=== PATIENT | male | born 1980 ===

== ENCOUNTER 2017-06-24 15:52 | Inpatient (IN) | payer OTHER ==
--- NOTE | 2017-06-24 16:42 | C.PDOC ---
History Of Present Illness <Mi Cervantes - Last Filed: 06/24/17 18:47> <Urban Koenig - Last Filed: 06/24/17 20:51> 37 yo male w/o significant PMHx come in for evaluation of intermittent epigastric pain pain for past 2 hours associate dwith burping. Pt reports, " after burp pain improves". Pain is intermittent, aching, localized over epigastric area, nonradiating. Otherwise, pt denies fever, chills, recent illness, CP, SOB, dyspnea, dipahoresis, palpitation, cough, wheezing, V/D, UTI sx, back pain. Pt denies previous hx of GI ds. Ambulate to ED for evaluation, not in any apparent distress. (Mi Cervantes) History Per: Patient History/Exam Limitations: no limitations Onset/Duration Of Symptoms: Hrs Current Symptoms Are (Timing): Still Present Location Of Pain/Discomfort: Epigastric <Mi Cervantes - Last Filed: 06/24/17 18:47> <Urban Koenig - Last Filed: 06/24/17 20:51> Time Seen by Provider: 06/24/17 16:14 Chief Complaint (Nursing): Abdominal Pain Past Medical History Reviewed: Historical Data, Nursing Documentation, Vital Signs - Medical History PMH: No Chronic Diseases Surgical History: No Surg Hx Family History: States: No Known Family Hx - Social History Hx Alcohol Use: Yes Hx Substance Use: No - Immunization History Hx Tetanus Toxoid Vaccination: No Hx Influenza Vaccination: No Hx Pneumococcal Vaccination: No <Mi Cervantes - Last Filed: 06/24/17 18:47> Vital Signs: Last Vital Signs Temp 97.6 F 06/24/17 17:17 Pulse 69 06/24/17 17:17 Resp 18 06/24/17 17:17 BP 164/111 H 06/24/17 19:55 Pulse Ox 100 06/24/17 18:48 Review Of Systems Except As Marked, All Systems Reviewed And Found Negative. Constitutional: Negative for: Fever, Chills Cardiovascular: Negative for: Chest Pain Respiratory: Negative for: Cough, Shortness of Breath, Wheezing Gastrointestinal: Positive for: Abdominal Pain. Negative for: Nausea, Vomiting Skin: Negative for: Rash <Mi Cervantes - Last Filed: 06/24/17 18:47> Physical Exam - Physical Exam Appears: Well, Non-toxic, No Acute Distress Skin: Normal Color, Warm, Dry, No Rash Head: Normacephalic Eye(s): bilateral: PERRL Nose: No Flaring, No Discharge Oral Mucosa: Moist, No Drooling Throat: No Drooling Neck: Trachea Midline, Supple Cardiovascular: Rhythm Regular, No Murmur, No JVD Respiratory: No Decreased Breath Sounds, No Accessory Muscle Use, No Stridor, No Wheezing Gastrointestinal/Abdominal: Soft, Tenderness (mild epigastric), No Distention, No Guarding, No Rebound Back: No CVA Tenderness Extremity: No Deformity, No Swelling Neurological/Psych: Oriented x3, Normal Speech <Mi Cervantes - Last Filed: 06/24/17 18:47> ED Course And Treatment ECG: Interpreted By Me, Viewed By Me ECG Rhythm: Sinus Rhythm ECG Interpretation: No Acute Changes Interpretation Of ECG: SR@69/min, NAD, no acute T wave or ST-T changes. O2 Sat by Pulse Oximetry: 100 (ra) Pulse Ox Interpretation: Normal - Radiology CXR: Read By Radiologist CXR Interpretation: Yes: No Acute Disease - Other Rad Abd, 2 views X-Ray: Viewed By Me, Read By Radiologist Interpretation: (-) air-fluid level, (+) constipation, moderate Progress Note: On re-evalution, pt reports ' still have pain". repeat BP remained high. Case discussed with and blood work recommend now. PulsEOx 100% RA. Neck: Supple, (-) JVD, (-) carotid bruits B/L. ENT: No acute findings. Lungs: CTA B/L, BS equal B/L. CVS: (+)S1S2, reg. Abd: mild epigastric, periumbilical tenderness, (-) garding, (-) rebound. Neurologicaly intact. EKG, CXR review and appears normal. Case discussed with sign out to <Mi Cervantes - Last Filed: 06/24/17 18:47> - Laboratory Results Result Diagrams: 06/24/17 18:36 06/24/17 18:36 ECG: Interpreted By Me, Viewed By Me ECG Rhythm: Sinus Rhythm ECG Interpretation: Normal, No Acute Changes <Urban Koenig - Last Filed: 06/24/17 20:51> Disposition Counseled Patient/Family Regarding: Diagnosis, Need For Followup, Rx Given - Disposition Disposition Time: 18:47 <Mi Cervantes - Last Filed: 06/24/17 18:47> <Urban Koenig - Last Filed: 06/24/17 20:51> - Disposition Referrals: [facility] [Outside] Disposition: HOME/ ROUTINE Condition: STABLE - Clinical Impression Clinical Impression: Epigastric abdominal pain, Hypertension - PA / FIELD INSTRUCTOR / Resident Statement MD/DO has reviewed & agrees with the documentation as recorded. - Scribe Statement The provider has reviewed the documentation as recorded by the Scribe <Mi Cervantes - Last Filed: 06/24/17 18:47> <Urban Koenig - Last Filed: 06/24/17 20:51> - Scribe Statement Dharmesh Gardiner All medical record entries made by the Scribe were at my direction and personally dictated by me. I have reviewed the chart and agree that the record accurately reflects my personal performance of the history, physical exam, medical decision making, and the department course for this patient. I have also personally directed, reviewed, and agree with the discharge instructions and disposition. (Mi Cervantes) Physician Patient Turnover Patient Signed Over To: Urban Koenig Handoff Comments: Blood work, re-eval, dispo <Mi Cervantes - Last Filed: 06/24/17 18:47>
--- NOTE | 2017-06-24 17:28 | RAD ---
HISTORY: Cough COMPARISON: None available. TECHNIQUE: Chest PA and lateral FINDINGS: LUNGS: No focal consolidation. Please note that chest x-ray has limited sensitivity for the detection of pulmonary masses. PLEURA: No significant pleural effusion identified. No definite pneumothorax . CARDIOVASCULAR: The cardiomediastinal silhouette appears within normal limits of size. OSSEOUS STRUCTURES: No acute osseous abnormality identified. VISUALIZED UPPER ABDOMEN: Elevation of the right hemidiaphragm. OTHER FINDINGS: None. IMPRESSION: No focal consolidation identified.
--- NOTE | 2017-06-24 17:29 | RAD ---
HISTORY: pain COMPARISON: None available. FINDINGS: BOWEL: Nonobstructive bowel gas pattern. Moderate constipation. No definite free air. BONES: No acute osseous abnormality is detected. OTHER FINDINGS: Mild elevation of the right hemidiaphragm. IMPRESSION: Moderate constipation.
[2017-06-24] MEDS ORDERED: Pantoprazole 40 mg EC Tab PO STA (17:51)
[2017-06-24] MEDS ORDERED: Alum-Mag Hydrox-Simethicone Susp (30 mL) PO STA (17:52)
[2017-06-24] MEDS ORDERED: Sodium Chloride 0.9% 1,000 ML IV ONE (18:00)
[2017-06-24] MEDS ORDERED: Simethicone 80 mg Chewtab PO STA (18:00)
[2017-06-24] MEDS ORDERED: Aluminum Hydroxide/Magnesium Hydroxide Susp (30 mL) ONE (18:05)
[2017-06-24] MEDS ORDERED: Pantoprazole 40 mg EC Tab PO ONE (18:14)
[2017-06-24 18:51] LABS: SQUAMOUS EPITHIAL < 1 /hpf (0-5); URINE BILIRUBIN NEGATIVE (NEGATIVE); URINE BLOOD 2+ (NEGATIVE); URINE CLARITY Clear (Clear); URINE COLOR Yellow (YELLOW); URINE GLUCOSE (UA) 3+ mg/dL (Normal); URINE LEUKOCYTE ESTERASE NEG Leu/uL (Negative); URINE PROTEIN 1+ mg/dL (NEGATIVE); URINE UROBILINOGEN NORMAL mg/dL (0.2-1.0)
[2017-06-24 18:55] LABS: BASO % 0.3 % (0.0-2.0); EOS % 0.5 % (0.0-4.0); HEMOGLOBIN 15.4 g/dL (12.0-18.0); LYMPH # 1.1 K/uL (1.0-4.3); LYMPH % 11.5 % (20.0-40.0); MEAN CELL VOLUME 86.4 fL (80.0-94.0); MEAN CORPUSCULAR HEMOGLOBIN 30.9 pg (27.0-31.0); MEAN CORPUSCULAR HGB CONC 35.8 g/dL (33.0-37.0); MEAN PLATELET VOLUME 8.5 fL (7.2-11.7); MONO # 0.6 K/uL (0.0-0.8); MONO % 6.1 % (0.0-10.0); NEUT # 7.7 K/uL (1.8-7.0); NEUT % 81.6 % (50.0-75.0); NRBC % 0.2 % (0.0-2.0); RED CELL DISTRIBUTION WIDTH 12.5 % (11.5-14.5); WHITE BLOOD COUNT 9.5 K/uL (4.8-10.8)
[2017-06-24 18:57] LABS: CALCIUM 9.3 mg/dl (8.6-10.4); GFR AFRICAN-AMERICAN > 60; GFR NON-AFRICAN AMERICAN > 60; LIPASE 1838 U/L (23-300)
[2017-06-24 19:00] LABS: ALB/GLOB RATIO 1.1 (1.0-2.1); ALBUMIN 4.3 g/dL (3.5-5.0); ALT/SGPT 79 U/L (21-72); AST/SGOT 95 U/L (17-59); BLOOD UREA NITROGEN 10 mg/dL (9-20)
[2017-06-24] MEDS ORDERED: Iohexol 240 (50 ml) PO ONE (19:38)
[2017-06-24] MEDS ORDERED: Iohexol 240 (50 ml) ONE (19:53)
[2017-06-24] MEDS ORDERED: Iohexol 350mg/ml 100 ML ONE (19:59)
--- NOTE | 2017-06-24 23:13 | CP.PCM.HP ---
Present on Admission - Present on Admission Any Indicators Present on Admission: No Past Patient History - Past Social History Smoking Status: Never Smoked - PSYCHIATRIC Hx Substance Use: No - SURGICAL HISTORY Hx Surgeries: No - ANESTHESIA Hx Anesthesia: No Meds Allergies/Adverse Reactions: Allergies Allergy/AdvReac Type Severity Reaction Status Date / Time No Known Allergies Allergy Verified 06/24/17 15:59 Results - Vital Signs Recent Vital Signs: Last Vital Signs Temp 98.7 F 06/24/17 21:31 Pulse 98 H 06/24/17 21:31 Resp 20 06/24/17 21:31 BP 171/92 H 06/24/17 21:31 Pulse Ox 100 06/24/17 18:48 - Labs Result Diagrams: 06/24/17 18:36 06/24/17 18:36 Labs: Laboratory Results - last 24 hr 06/24/17 06/24/17 06/24/17 18:36 18:36 18:36 WBC 9.5 RBC 5.00 Hgb 15.4 Hct 43.2 MCV 86.4 MCH 30.9 MCHC 35.8 RDW 12.5 Plt Count 193 MPV 8.5 Neut % (Auto) 81.6 H Lymph % (Auto) 11.5 L [place] % (Auto) 6.1 Eos % (Auto) 0.5 Baso % (Auto) 0.3 Neut # (Auto) 7.7 H Lymph # (Auto) 1.1 [place] # (Auto) 0.6 Eos # (Auto) 0.0 Baso # (Auto) 0.0 PT 11.0 INR 1.0 APTT 29 Sodium Potassium Chloride Carbon Dioxide Anion Gap BUN Creatinine Est GFR ( Amer) Est GFR (Non-Af Amer) Random Glucose Calcium Total Bilirubin AST ALT Alkaline Phosphatase Troponin I Total Protein Albumin Globulin Albumin/Globulin Ratio Lipase Urine Color Yellow Urine Clarity Clear Urine pH 7.0 Ur Specific [place] 1.031 H Urine Protein 1+ H Urine Glucose (UA) 3+ H Urine Ketones 2+ H Urine Blood 2+ H Urine Nitrate Negative Urine Bilirubin Negative Urine Urobilinogen Normal Ur Leukocyte Esterase Neg Urine WBC (Auto) 2 Urine RBC (Auto) 25 H Ur Squamous Epith Cells < 1 06/24/17 18:36 WBC RBC Hgb Hct MCV MCH MCHC RDW Plt Count MPV Neut % (Auto) Lymph % (Auto) [place] % (Auto) Eos % (Auto) Baso % (Auto) Neut # (Auto) Lymph # (Auto) [place] # (Auto) Eos # (Auto) Baso # (Auto) PT INR APTT Sodium 130 L Potassium 4.8 Chloride 92 L Carbon Dioxide 22 Anion Gap 21 H BUN 10 Creatinine 0.4 L Est GFR ( Amer) > 60 Est GFR (Non-Af Amer) > 60 Random Glucose 286 H Calcium 9.3 Total Bilirubin 1.3 AST 95 H ALT 79 H Alkaline Phosphatase 76 Troponin I 0.0210 Total Protein 8.1 Albumin 4.3 Globulin 3.8 Albumin/Globulin Ratio 1.1 Lipase 1838 H Urine Color Urine Clarity Urine pH Ur Specific [place] Urine Protein Urine Glucose (UA) Urine Ketones Urine Blood Urine Nitrate Urine Bilirubin Urine Urobilinogen Ur Leukocyte Esterase Urine WBC (Auto) Urine RBC (Auto) Ur Squamous Epith Cells Assessment & Plan (1) Acute pancreatitis Status: Acute (2) Epigastric abdominal pain Status: Acute (3) Hypertension Status: Acute - Assessment and Plan (Free Text) Plan: ivf protonix ovenox gi consult amylase lipase banana bag cbcmcp tomorrow am
[2017-06-24] MEDS ORDERED: Multivitamin (MVI) 10 ML, Thiamine 100 MG, Folic Acid 1 MG in Sodium Chloride 0.9% 1,00... IV ONE (23:19)
[2017-06-25 06:56] LABS: BASO % 0.4 % (0.0-2.0); EOS % 0.4 % (0.0-4.0); LYMPH # 1.1 K/uL (1.0-4.3); LYMPH % 11.8 % (20.0-40.0); MEAN CELL VOLUME 86.8 fL (80.0-94.0); MEAN CORPUSCULAR HEMOGLOBIN 31.5 pg (27.0-31.0); MEAN CORPUSCULAR HGB CONC 36.3 g/dL (33.0-37.0); MONO # 0.6 K/uL (0.0-0.8); MONO % 6.9 % (0.0-10.0); NEUT # 7.2 K/uL (1.8-7.0); NEUT % 80.5 % (50.0-75.0); RBC 4.76 Mil/uL (4.40-5.90); RED CELL DISTRIBUTION WIDTH 12.5 % (11.5-14.5); WHITE BLOOD COUNT 8.9 K/uL (4.8-10.8)
[2017-06-25 07:18] LABS: ALB/GLOB RATIO 1.2 (1.0-2.1); ALBUMIN 3.8 g/dL (3.5-5.0); ALT/SGPT 59 U/L (21-72); AMYLASE 360 U/L (30-110); AST/SGOT 47 U/L (17-59); BLOOD UREA NITROGEN 7 mg/dL (9-20); CALCIUM 8.6 mg/dl (8.6-10.4); GFR AFRICAN-AMERICAN > 60; GFR NON-AFRICAN AMERICAN > 60
--- NOTE | 2017-06-25 09:10 | CT ---
PROCEDURE: CT Abdomen and Pelvis with contrast HISTORY: epigastric pain/ elevated lipase COMPARISON: None. TECHNIQUE: CT scan of the abdomen and pelvis was performed after intravenous administration of contrast. Oral contrast was administered. Coronal and sagittal reformatted images were obtained. Contrast dose: 100 mL Omnipaque 350 Radiation dose: Total exam DLP = 511.72 mGy-cm. This CT exam was performed using one or more of the following dose reduction techniques: Automated exposure control, adjustment of the mA and/or kV according to patient size, and/or use of iterative reconstruction technique. FINDINGS: LOWER THORAX: There are nodular densities in the right lower lobes, the largest measures 9 mm. The left lung base is clear. LIVER: There is mild hepatomegaly and diffuse fatty infiltration in the liver. No gross lesion or ductal dilatation. GALLBLADDER AND BILE DUCTS: No calcified gallstones. PANCREAS: There is focal enlargement and edema in the head of the pancreas with significant surrounding inflammatory changes and fluid in the right superior retroperitoneum extending to right para renal space and right pericolic gutter. No evidence for ductal dilatation, calcifications or pseudocyst. The body and tail of the pancreas are relatively normal in appearance. SPLEEN: Normal in size and appearance. ADRENALS: No discrete nodule. KIDNEYS AND URETERS: Both kidneys are normal in size and there is homogeneous enhancement without hydronephrosis or mass. VASCULATURE: No aortic aneurysm. BOWEL: The small bowel loops are normal in appearance. The colon is decompressed. No bowel dilatation or obstruction. APPENDIX: Normal appendix. PERITONEUM: No free air. LYMPH NODES: No enlarged lymph nodes. BLADDER: Grossly normal in appearance. REPRODUCTIVE: The prostate gland is normal in size. BONES: No acute fracture. Within normal limits for the patient's age. OTHER FINDINGS: None. IMPRESSION: 1. Focal acute pancreatitis predominantly involving the head of the pancreas with surrounding inflammatory changes and small amount of free fluid in the superior retroperitoneum, right para renal space and right pericolic gutter. No evidence for ductal dilatation or pseudocyst. 2. Mild hepatomegaly and fatty liver. 3. 9 mm nodule in the right posterior lower lobe. A dedicated CT scan of the thorax without intravenous contrast on a non emergent basis is recommended for complete evaluation of the lungs. A preliminary report was provided by [facility].
[2017-06-25] MEDS: Enoxaparin 40 mg Syringe SC SCH (09:11)
--- NOTE | 2017-06-25 09:11 | CP.PCM.CON ---
<Kenn Garcia - Last Filed: 06/25/17 09:29> History of Present Illness - History of Present Illness History of Present Illness: Initial GI Consult Note - Kota Garcia PGY2 cc: abdominal pain HPI: Patient is a 37yo male with no past medical history that presented c/o abdominal pain that started yesterday afternoon. He reported that his abdominal pain localized to the epigastric region, was non-radiating, constant and associated with nausea and non-bilious, non-bloody emesis. Patient reported that he normally drinks 4-5 beers on the weekends and several shots of rum however this past weekend he had more than usual. He denied episodes like this in the past and reported that prior to this he was in his usual state of health. He denied chest pain, palpitations, SOB, fever, chills, cough, focal weakness, numbness, tingling. 12point ROS as per HPI above otherwise negative PMHx: denies PSHx: denies Allergies: NKDA Social Hx: Drinks rum/beer on the weekends; Denies tobacco and illicit drug use ; Reports being employed full-time Family Hx: Mother/Father: DM type 2, denies history of colorectal cancer Endoscopy Hx: Denies prior endoscopy/colonoscopy Past Patient History - Past Medical History & Family History Past Medical History?: Yes - Past Social History Smoking Status: Never Smoked - CARDIAC Hx Cardiac Disorders: No - PULMONARY Hx Respiratory Disorders: No - NEUROLOGICAL Hx Neurological Disorder: No - HEENT Hx HEENT Problems: No - RENAL Hx Chronic Kidney Disease: No - ENDOCRINE/METABOLIC Hx Endocrine Disorders: No - HEMATOLOGICAL/ONCOLOGICAL Hx Blood Disorders: No - INTEGUMENTARY Hx Dermatological Problems: No - MUSCULOSKELETAL/RHEUMATOLOGICAL Hx Musculoskeletal Disorders: No Hx Falls: No - GASTROINTESTINAL Other/Comment: Patient denies - PSYCHIATRIC Hx Substance Use: No - SURGICAL HISTORY Hx Surgeries: No - ANESTHESIA Hx Anesthesia: No Hx Anesthesia Reactions: No Hx Malignant Hyperthermia: No Has any member of the family had a problem w/ anesthesia?: No Meds Allergies/Adverse Reactions: Allergies Allergy/AdvReac Type Severity Reaction Status Date / Time No Known Allergies Allergy Verified 06/24/17 15:59 - Medications Medications: Current Medications Amlodipine Besylate (Norvasc) 5 mg PO DAILY [facility] Enoxaparin Sodium (Lovenox) 40 mg SC DAILY [facility] Multivitamins/Vitamin C 10 ml/Thiamine HCl 100 mg/ Folic Acid 1 mg/ Sodium Chloride 1,011.2 mls @ 100 mls/hr IV .Q10H7M ONE Stop: 06/25/17 09:25 Last Admin: 06/24/17 23:50 Dose: 100 mls/hr Pantoprazole Sodium (Protonix Inj) 40 mg IVP DAILY [facility] Pneumococcal Polyvalent Vaccine (Pneumovax 23 Vaccine) 0.5 ml IM .ONCE ONE Stop: 06/27/17 08:52 Physical Exam - Constitutional Appears: No Acute Distress - Head Exam Head Exam: ATRAUMATIC, NORMAL INSPECTION, NORMOCEPHALIC - Eye Exam Eye Exam: EOMI, PERRL - ENT Exam ENT Exam: Mucous Membranes Moist - Respiratory Exam Respiratory Exam: Clear to Auscultation Bilateral. absent: Rales, Rhonchi, Wheezes - Cardiovascular Exam Cardiovascular Exam: RRR, +S1, +S2. absent: Clicks, Gallop, JVD, Rubs - GI/Abdominal Exam GI & Abdominal Exam: Soft, Tenderness (mild epigastric tenderness). absent: Distended, Firm, Guarding, Mass, Rebound, Rigid - Extremities Exam Extremities exam: Positive for: normal inspection. Negative for: pedal edema - Neurological Exam Neurological exam: Alert, CN II-XII Intact, Oriented x3 - Psychiatric Exam Psychiatric exam: Normal Affect, Normal Mood - Skin Skin Exam: Dry, Intact, Normal Color, Warm Results - Vital Signs Recent Vital Signs: Last Vital Signs Temp 97.9 F 06/25/17 08:35 Pulse 83 06/25/17 08:35 Resp 21 06/25/17 08:35 BP 151/101 H 06/25/17 08:35 Pulse Ox 100 06/25/17 08:35 - Labs Result Diagrams: 06/25/17 06:51 06/25/17 06:51 Labs: Laboratory Results - last 24 hr 06/24/17 06/24/17 06/24/17 18:36 18:36 18:36 WBC 9.5 RBC 5.00 Hgb 15.4 Hct 43.2 MCV 86.4 MCH 30.9 MCHC 35.8 RDW 12.5 Plt Count 193 MPV 8.5 Neut % (Auto) 81.6 H Lymph % (Auto) 11.[address] % (Auto) 6.1 Eos % (Auto) 0.5 Baso % (Auto) 0.3 Neut # (Auto) 7.7 H Lymph # (Auto) 1.1 [place] # (Auto) 0.6 Eos # (Auto) 0.0 Baso # (Auto) 0.0 PT 11.0 INR 1.0 APTT 29 Sodium Potassium Chloride Carbon Dioxide Anion Gap BUN Creatinine Est GFR ( Amer) Est GFR (Non-Af Amer) Random Glucose Calcium Total Bilirubin AST ALT Alkaline Phosphatase Troponin I Total Protein Albumin Globulin Albumin/Globulin Ratio Amylase Lipase Urine Color Yellow Urine Clarity Clear Urine pH 7.0 Ur Specific [place] 1.031 H Urine Protein 1+ H Urine Glucose (UA) 3+ H Urine Ketones 2+ H Urine Blood 2+ H Urine Nitrate Negative Urine Bilirubin Negative Urine Urobilinogen Normal Ur Leukocyte Esterase Neg Urine WBC (Auto) 2 Urine RBC (Auto) 25 H Ur Squamous Epith Cells < 1 06/24/17 06/25/17 06/25/17 18:36 06:51 06:51 WBC 8.9 RBC 4.76 Hgb 15.0 Hct 41.3 MCV 86.8 MCH 31.5 H MCHC 36.3 RDW 12.5 Plt Count 184 MPV 8.0 Neut % (Auto) 80.5 H Lymph % (Auto) 11.[address] % (Auto) 6.9 Eos % (Auto) 0.4 Baso % (Auto) 0.4 Neut # (Auto) 7.2 H Lymph # (Auto) 1.1 [place] # (Auto) 0.6 Eos # (Auto) 0.0 Baso # (Auto) 0.0 PT INR APTT Sodium 130 L 132 Potassium 4.8 4.5 Chloride 92 L 96 L Carbon Dioxide 22 22 Anion Gap 21 H 19 BUN 10 7 L Creatinine 0.4 L 0.5 L Est GFR ( Amer) > 60 > 60 Est GFR (Non-Af Amer) > 60 > 60 Random Glucose 286 H 227 H Calcium 9.3 8.6 Total Bilirubin 1.3 1.0 AST 95 H 47 ALT 79 H 59 Alkaline Phosphatase 76 69 Troponin I 0.0210 Total Protein 8.1 6.9 Albumin 4.3 3.8 Globulin 3.8 3.1 Albumin/Globulin Ratio 1.1 1.2 Amylase 360 H Lipase 1838 H > 2000 H Urine Color Urine Clarity Urine pH Ur Specific [place] Urine Protein Urine Glucose (UA) Urine Ketones Urine Blood Urine Nitrate Urine Bilirubin Urine Urobilinogen Ur Leukocyte Esterase Urine WBC (Auto) Urine RBC (Auto) Ur Squamous Epith Cells Assessment & Plan - Assessment and Plan (Free Text) Plan: 37yo male with no significant past medical history presents c/o epigastric abdominal pain secondary to acute pancreatitis 1. Acute pancreatitis Plan: -Clear liquid diet -LR @ 200cc/hr -Abdominal US pending -Protonix for GI prophylaxis -Alcohol cessation counseling provided Patient seen and case discussed/reviewed with attending, Dr. Bryant <Konstantin Bryant - Last Filed: 06/25/17 11:59> Meds - Medications Medications: Current Medications Amlodipine Besylate (Norvasc) 5 mg PO DAILY [facility] Last Admin: 06/25/17 11:05 Dose: 5 mg Enoxaparin Sodium (Lovenox) 40 mg SC DAILY [facility] Last Admin: 06/25/17 09:11 Dose: 40 mg Lactated Ringer's (Lactated Ringer's) 1,000 mls @ 200 mls/hr IV .Q5H [facility] Last Admin: 06/25/17 11:03 Dose: 200 mls/hr Pantoprazole Sodium (Protonix Inj) 40 mg IVP DAILY [facility] Last Admin: 06/25/17 09:12 Dose: 40 mg Pneumococcal Polyvalent Vaccine (Pneumovax 23 Vaccine) 0.5 ml IM .ONCE ONE Stop: 06/27/17 08:52 Results - Vital Signs Recent Vital Signs: Last Vital Signs Temp 97.9 F 06/25/17 08:35 Pulse 83 06/25/17 08:35 Resp 21 06/25/17 08:35 BP 151/101 H 06/25/17 08:35 Pulse Ox 100 06/25/17 08:35 - Labs Result Diagrams: 06/25/17 06:51 06/25/17 06:51 Labs: Laboratory Results - last 24 hr 06/24/17 06/24/17 06/24/17 18:36 18:36 18:36 WBC 9.5 RBC 5.00 Hgb 15.4 Hct 43.2 MCV 86.4 MCH 30.9 MCHC 35.8 RDW 12.5 Plt Count 193 MPV 8.5 Neut % (Auto) 81.6 H Lymph % (Auto) 11.[address] [place] % (Auto) 6.1 Eos % (Auto) 0.5 Baso % (Auto) 0.3 Neut # (Auto) 7.7 H Lymph # (Auto) 1.1 [place] # (Auto) 0.6 Eos # (Auto) 0.0 Baso # (Auto) 0.0 PT 11.0 INR 1.0 APTT 29 Sodium Potassium Chloride Carbon Dioxide Anion Gap BUN Creatinine Est GFR ( Amer) Est GFR (Non-Af Amer) Random Glucose Hemoglobin A1c Calcium Total Bilirubin AST ALT Alkaline Phosphatase Troponin I Total Protein Albumin Globulin Albumin/Globulin Ratio Triglycerides Cholesterol LDL Cholesterol Direct HDL Cholesterol Amylase Lipase Urine Color Yellow Urine Clarity Clear Urine pH 7.0 Ur Specific [place] 1.031 H Urine Protein 1+ H Urine Glucose (UA) 3+ H Urine Ketones 2+ H Urine Blood 2+ H Urine Nitrate Negative Urine Bilirubin Negative Urine Urobilinogen Normal Ur Leukocyte Esterase Neg Urine WBC (Auto) 2 Urine RBC (Auto) 25 H Ur Squamous Epith Cells < 1 06/24/17 06/25/17 06/25/17 18:36 06:51 06:51 WBC 8.9 RBC 4.76 Hgb 15.0 Hct 41.3 MCV 86.8 MCH 31.5 H MCHC 36.3 RDW 12.5 Plt Count 184 MPV 8.0 Neut % (Auto) 80.5 H Lymph % (Auto) 11.[address] [place] % (Auto) 6.9 Eos % (Auto) 0.4 Baso % (Auto) 0.4 Neut # (Auto) 7.2 H Lymph # (Auto) 1.1 [place] # (Auto) 0.6 Eos # (Auto) 0.0 Baso # (Auto) 0.0 PT INR APTT Sodium 130 L 132 Potassium 4.8 4.5 Chloride 92 L 96 L Carbon Dioxide 22 22 Anion Gap 21 H 19 BUN 10 7 L Creatinine 0.4 L 0.5 L Est GFR ( Amer) > 60 > 60 Est GFR (Non-Af Amer) > 60 > 60 Random Glucose 286 H 227 H Hemoglobin A1c Calcium 9.3 8.6 Total Bilirubin 1.3 1.0 AST 95 H 47 ALT 79 H 59 Alkaline Phosphatase 76 69 Troponin I 0.0210 Total Protein 8.1 6.9 Albumin 4.3 3.8 Globulin 3.8 3.1 Albumin/Globulin Ratio 1.1 1.2 Triglycerides 141 Cholesterol 261 H LDL Cholesterol Direct 200 H HDL Cholesterol 55 Amylase 360 H Lipase 1838 H 2477 H Urine Color Urine Clarity Urine pH Ur Specific [place] Urine Protein Urine Glucose (UA) Urine Ketones Urine Blood Urine Nitrate Urine Bilirubin Urine Urobilinogen Ur Leukocyte Esterase Urine WBC (Auto) Urine RBC (Auto) Ur Squamous Epith Cells 06/25/17 09:52 WBC RBC Hgb Hct MCV MCH MCHC RDW Plt Count MPV Neut % (Auto) Lymph % (Auto) [place] % (Auto) Eos % (Auto) Baso % (Auto) Neut # (Auto) Lymph # (Auto) [place] # (Auto) Eos # (Auto) Baso # (Auto) PT INR APTT Sodium Potassium Chloride Carbon Dioxide Anion Gap BUN Creatinine Est GFR ( Amer) Est GFR (Non-Af Amer) Random Glucose Hemoglobin A1c 11.5 H Calcium Total Bilirubin AST ALT Alkaline Phosphatase Troponin I Total Protein Albumin Globulin Albumin/Globulin Ratio Triglycerides Cholesterol LDL Cholesterol Direct HDL Cholesterol Amylase Lipase Urine Color Urine Clarity Urine pH Ur Specific [place] Urine Protein Urine Glucose (UA) Urine Ketones Urine Blood Urine Nitrate Urine Bilirubin Urine Urobilinogen Ur Leukocyte Esterase Urine WBC (Auto) Urine RBC (Auto) Ur Squamous Epith Cells Attending/Attestation - Attestation I have personally seen and examined this patient.: Yes I have fully participated in the care of the patient.: Yes I have reviewed all pertinent clinical information: Yes Notes (Text): 06/25/17 11:42 Patient seen and examined with GI fellow and medical care administrator in ER early this morning. This is a 37 year old male with no significant past medical history presents with epigastric abdominal pain radiating to left side characteristic of acute pancreatitis. Patient has been binge drinking on the weekends for several months. This morning pain is subsiding. Can start clear liquid diet and advance as tolerated. Abdominal sonogram pending to rule out gallstones. Continue IVF at 200cc/hr and start clear liquid diet. Counselled regarding low fat diet and alcohol cessation. Will follow closely
[2017-06-25 10:06] LABS: HDL CHOLESTEROL 55 mg/dL (30-70)
[2017-06-25 10:17] LABS: LDL CHOLESTEROL 200 mg/dL (0-129)
[2017-06-25 10:34] LABS: LIPASE 2477 U/L (23-300)
[2017-06-25] MEDS: Lactated Ringer's 1,000 ML IV SCH ×2 (11:03→17:32)
--- NOTE | 2017-06-25 11:20 | US ---
HISTORY: r/o cholelithiasis, CBD stones COMPARISON: None available. TECHNIQUE: Sonographic evaluation of the right upper quadrant of the abdomen. FINDINGS: LIVER: Measures 13.7 cm in length. Echogenic liver may be seen in setting of hepatic parenchymal disease or fatty infiltration. No focal hepatic mass identified. Main portal vein appears patent with normal directional flow. No intrahepatic bile duct dilatation. GALLBLADDER: No gallstones. No gallbladder wall thickening or pericholecystic edema. Negative sonographic Kelsey's sign as assessed by the supervisor toy assembly. COMMON BILE DUCT: Measures 3 mm. PANCREAS: Not well-visualized. RIGHT KIDNEY: Measures 12.8 x 6.0 x 5.6 cm. No obstructing calculus or hydronephrosis identified. AORTA: Limited visualization appears grossly unremarkable. IVC: Limited visualization appears grossly unremarkable. OTHER FINDINGS: None. IMPRESSION: Echogenic liver may be seen in setting of hepatic parenchymal disease or fatty infiltration.
[2017-06-25 13:01] LABS: BARBITURATES, UR NEGATIVE (NEGATIVE); BENZODIAZEPINES, UR NEGATIVE (NEGATIVE); OPIATES, UR NEGATIVE (NEGATIVE); PHENCYCLIDINE, UR NEGATIVE (NEGATIVE)
--- NOTE | 2017-06-25 13:32 | CP.PCM.PN ---
<Christo Thompson - Last Filed: 06/25/17 13:36> Subjective - Date & Time of Evaluation Date of Evaluation: 06/25/17 Time of Evaluation: 13:30 - Subjective Subjective: Progress note. Attending: Dr. Blanton. Pt seen and examined at bedside. No acute distress. Abd pain subsiding. NO fevers, chills, vomiting, diarrhea, shortness of breath, chest pain. Objective - Vital Signs/Intake and Output Vital Signs (last 24 hours): Temp Pulse Resp BP Pulse Ox 97.9 F 83 21 151/101 H 100 06/25/17 08:35 06/25/17 08:35 06/25/17 08:35 06/25/17 08:35 06/25/17 08:35 - Medications Medications: Current Medications Amlodipine Besylate (Norvasc) 5 mg PO DAILY [facility] Last Admin: 06/25/17 11:05 Dose: 5 mg Enoxaparin Sodium (Lovenox) 40 mg SC DAILY [facility] Last Admin: 06/25/17 09:11 Dose: 40 mg Lactated Ringer's (Lactated Ringer's) 1,000 mls @ 200 mls/hr IV .Q5H [facility] Last Admin: 06/25/17 11:03 Dose: 200 mls/hr Pantoprazole Sodium (Protonix Inj) 40 mg IVP DAILY [facility] Last Admin: 06/25/17 09:12 Dose: 40 mg Pneumococcal Polyvalent Vaccine (Pneumovax 23 Vaccine) 0.5 ml IM .ONCE ONE Stop: 06/27/17 08:52 - Labs Labs: 06/25/17 06:51 06/25/17 06:51 PT 11.0 SECONDS (9.7-12.2) 06/24/17 18:36 INR 1.0 06/24/17 18:36 APTT 29 SECONDS (21-34) 06/24/17 18:36 - Constitutional Appears: Non-toxic, No Acute Distress - Head Exam Head Exam: ATRAUMATIC, NORMAL INSPECTION, NORMOCEPHALIC - Eye Exam Eye Exam: EOMI - ENT Exam ENT Exam: Mucous Membranes Moist - Neck Exam Neck Exam: Full ROM, Normal Inspection - Respiratory Exam Respiratory Exam: NORMAL BREATHING PATTERN. absent: Respiratory Distress - Cardiovascular Exam Cardiovascular Exam: +S1, +S2 - GI/Abdominal Exam GI & Abdominal Exam: Soft, Normal Bowel Sounds. absent: Tenderness - Extremities Exam Extremities Exam: Full ROM, Normal Inspection - Back Exam Back Exam: NORMAL INSPECTION - Neurological Exam Neurological Exam: Alert, Awake, Oriented x3 - Psychiatric Exam Psychiatric exam: Normal Affect, Normal Mood - Skin Skin Exam: Dry, Intact, Normal Color, Warm Assessment and Plan - Assessment and Plan (Free Text) Assessment: This is a 37 yo male with 1. Acute pancreatitis -GI consult. recs appreciated. Dr. Bryant. -Lactated ringer's 200 cc/hr -abdominal us to rule out gallstones -lipase highly elevated -urine drug screen negative -lipid panel pending -HGB a1C pending 2. HTN -will start norvasc 5 daily -continue to monitor 3. Pulmonary nodule -pulmonary nodule noted on ct scan of abdomen -will need follow up outpatient 4. Hepatomegaly/fatty liver -continue to monitor 5. GI/DVT ppx -protonix -lovenox [address] Blanton <Morgan Blanton S - Last Filed: 06/25/17 20:16> Objective - Vital Signs/Intake and Output Vital Signs (last 24 hours): Temp Pulse Resp BP Pulse Ox 97.9 F 83 21 135/76 100 06/25/17 08:35 06/25/17 08:35 06/25/17 08:35 06/25/17 19:00 06/25/17 08:35 Intake and Output: 06/25/17 06/26/17 18:59 06:59 Intake Total 1500 Balance 1500 - Medications Medications: Current Medications Amlodipine Besylate (Norvasc) 5 mg PO DAILY [facility] Last Admin: 06/25/17 11:05 Dose: 5 mg Dextrose (Dextrose 50% Inj) 0 ml IV STAT PRN; Protocol PRN Reason: Hypoglycemia Protocol Dextrose (Glutose 15) 0 gm PO ONCE PRN; Protocol PRN Reason: Hypoglycemia Protocol Enoxaparin Sodium (Lovenox) 40 mg SC DAILY [facility] Last Admin: 06/25/17 09:11 Dose: 40 mg Glucagon (Glucagen Diagnostic Kit) 0 mg IM STAT PRN; Protocol PRN Reason: Hypoglycemia Protocol Lactated Ringer's (Lactated Ringer's) 1,000 mls @ 200 mls/hr IV .Q5H [facility] Last Admin: 06/25/17 17:32 Dose: 200 mls/hr Dextrose (Dextrose 5% In Water 1000 Ml) 1,000 mls @ 0 mls/hr IV .Q0M PRN; Protocol; Per Protocol PRN Reason: Hypoglycemia Protocol Insulin Human Regular (Novolin R) 0 unit SC ACHS [facility] PRN Reason: Protocol Last Admin: 06/25/17 17:32 Dose: 3 unit Lisinopril (Zestril) 5 mg PO DAILY [facility] Last Admin: 06/25/17 17:31 Dose: 5 mg Pantoprazole Sodium (Protonix Inj) 40 mg IVP DAILY [facility] Last Admin: 06/25/17 09:12 Dose: 40 mg Pneumococcal Polyvalent Vaccine (Pneumovax 23 Vaccine) 0.5 ml IM .ONCE ONE Stop: 06/27/17 08:52 - Labs Labs: 06/25/17 06:51 06/25/17 06:51 PT 11.0 SECONDS (9.7-12.2) 06/24/17 18:36 INR 1.0 06/24/17 18:36 APTT 29 SECONDS (21-34) 06/24/17 18:36 Assessment and Plan (1) Acute pancreatitis Status: Acute (2) Epigastric abdominal pain Status: Acute (3) Hypertension Status: Acute Attending/Attestation - Attestation I have personally seen and examined this patient.: Yes I have fully participated in the care of the patient.: Yes I have reviewed all pertinent clinical information, including history, physical exam and plan: Yes Notes (Text): 06/25/17 20:16 Casein and discussed with the staff Pancrelipase is going up GI on the case Pulmonary nodule workup as an outpatient Discussed with the family and discussed with staff also and Discussed with the resident
[2017-06-25] MEDS ORDERED: Glucagon Recombinant 1 mg Inj IM PRN (13:37)
[2017-06-25] MEDS ORDERED: Dextrose 50% SYRINGE Inj (50 ml) IV PRN (13:37)
[2017-06-25] MEDS: (Novolin R) Insulin Human Regular 100 units/ml vial SC SCH ×2 (17:32→22:23)
--- NOTE | 2017-06-25 20:15 | CP.PCM.PN ---
Subjective - Date & Time of Evaluation Date of Evaluation: 06/25/17 Objective - Vital Signs/Intake and Output Vital Signs (last 24 hours): Temp Pulse Resp BP Pulse Ox 97.9 F 83 21 135/76 100 06/25/17 08:35 06/25/17 08:35 06/25/17 08:35 06/25/17 19:00 06/25/17 08:35 Intake and Output: 06/25/17 06/26/17 18:59 06:59 Intake Total 1500 Balance 1500 - Medications Medications: Current Medications Amlodipine Besylate (Norvasc) 5 mg PO DAILY [facility] Last Admin: 06/25/17 11:05 Dose: 5 mg Dextrose (Dextrose 50% Inj) 0 ml IV STAT PRN; Protocol PRN Reason: Hypoglycemia Protocol Dextrose (Glutose 15) 0 gm PO ONCE PRN; Protocol PRN Reason: Hypoglycemia Protocol Enoxaparin Sodium (Lovenox) 40 mg SC DAILY [facility] Last Admin: 06/25/17 09:11 Dose: 40 mg Glucagon (Glucagen Diagnostic Kit) 0 mg IM STAT PRN; Protocol PRN Reason: Hypoglycemia Protocol Lactated Ringer's (Lactated Ringer's) 1,000 mls @ 200 mls/hr IV .Q5H [facility] Last Admin: 06/25/17 17:32 Dose: 200 mls/hr Dextrose (Dextrose 5% In Water 1000 Ml) 1,000 mls @ 0 mls/hr IV .Q0M PRN; Protocol; Per Protocol PRN Reason: Hypoglycemia Protocol Insulin Human Regular (Novolin R) 0 unit SC ACHS [facility] PRN Reason: Protocol Last Admin: 06/25/17 17:32 Dose: 3 unit Lisinopril (Zestril) 5 mg PO DAILY [facility] Last Admin: 06/25/17 17:31 Dose: 5 mg Pantoprazole Sodium (Protonix Inj) 40 mg IVP DAILY [facility] Last Admin: 06/25/17 09:12 Dose: 40 mg Pneumococcal Polyvalent Vaccine (Pneumovax 23 Vaccine) 0.5 ml IM .ONCE ONE Stop: 06/27/17 08:52 - Labs Labs: 06/25/17 06:51 06/25/17 06:51 PT 11.0 SECONDS (9.7-12.2) 06/24/17 18:36 INR 1.0 06/24/17 18:36 APTT 29 SECONDS (21-34) 06/24/17 18:36 Assessment and Plan (1) Acute pancreatitis Status: Acute (2) Epigastric abdominal pain Status: Acute (3) Hypertension Status: Acute - Assessment and Plan (Free Text) Plan: Continue Lovenox Continue Norvasc Continue Aygestin Protonix Follow-up with the GI as needed Amylase lipase Lipase is going up Amylase is 360 We will do n.p.o. We will hold the p.o. medications Follow-up with the shaheen bonilla
--- NOTE | 2017-06-25 21:22 | CARD ---
APPROVED REPORT EKG Measurement Heart [id number] <Conclusion> Normal sinus rhythm Normal ECG
[2017-06-26 07:53] LABS: BASO % 0.2 % (0.0-2.0); EOS # 0.1 K/uL (0.0-0.7); EOS % 1.6 % (0.0-4.0); HEMOGLOBIN 14.7 g/dL (12.0-18.0); LYMPH # 1.4 K/uL (1.0-4.3); LYMPH % 16.5 % (20.0-40.0); MEAN CORPUSCULAR HEMOGLOBIN 31.2 pg (27.0-31.0); MEAN CORPUSCULAR HGB CONC 35.8 g/dL (33.0-37.0); MEAN PLATELET VOLUME 8.2 fL (7.2-11.7); MONO # 0.7 K/uL (0.0-0.8); NEUT % 72.7 % (50.0-75.0); RBC 4.72 Mil/uL (4.40-5.90); RED CELL DISTRIBUTION WIDTH 12.5 % (11.5-14.5); WHITE BLOOD COUNT 8.3 K/uL (4.8-10.8)
[2017-06-26] MEDS: (Novolin R) Insulin Human Regular 100 units/ml vial SC SCH ×4 (08:50→22:16)
[2017-06-26 09:30] LABS: ALB/GLOB RATIO 1.1 (1.0-2.1); ALBUMIN 3.9 g/dL (3.5-5.0); ALT/SGPT 51 U/L (21-72); AST/SGOT 40 U/L (17-59); BLOOD UREA NITROGEN 9 mg/dL (9-20); CALCIUM 9.4 mg/dl (8.6-10.4); GFR AFRICAN-AMERICAN > 60; GFR NON-AFRICAN AMERICAN > 60
--- NOTE | 2017-06-26 09:58 | CP.PCM.PN ---
<Christo Thompson - Last Filed: 06/26/17 09:59> Subjective - Date & Time of Evaluation Date of Evaluation: 06/26/17 Time of Evaluation: 10:00 - Subjective Subjective: Progress note. Attending: Dr. Blanton Pt seen and examined at bedside. No acute distress. BP elevated overnight, clonidine added. No fevers, chills, vomiting, diarrhea. Objective - Vital Signs/Intake and Output Vital Signs (last 24 hours): Temp Pulse Resp BP Pulse Ox 98.7 F 82 18 115/74 100 06/26/17 07:40 06/26/17 09:42 06/26/17 07:40 06/26/17 09:42 06/26/17 07:40 Intake and Output: 06/26/17 06/26/17 06:59 18:59 Intake Total 1200 Balance 1200 - Medications Medications: Current Medications Acetaminophen (Tylenol 325mg Tab) 650 mg PO Q6 PRN PRN Reason: Headache Last Admin: 06/26/17 06:19 Dose: 650 mg Amlodipine Besylate (Norvasc) 5 mg PO DAILY [facility] Last Admin: 06/25/17 11:05 Dose: 5 mg Clonidine HCl (Catapres) 0.1 mg PO TID [facility] Dextrose (Dextrose 50% Inj) 0 ml IV STAT PRN; Protocol PRN Reason: Hypoglycemia Protocol Dextrose (Glutose 15) 0 gm PO ONCE PRN; Protocol PRN Reason: Hypoglycemia Protocol Enoxaparin Sodium (Lovenox) 40 mg SC DAILY [facility] Last Admin: 06/25/17 09:11 Dose: 40 mg Glucagon (Glucagen Diagnostic Kit) 0 mg IM STAT PRN; Protocol PRN Reason: Hypoglycemia Protocol Dextrose (Dextrose 5% In Water 1000 Ml) 1,000 mls @ 0 mls/hr IV .Q0M PRN; Protocol; Per Protocol PRN Reason: Hypoglycemia Protocol Lactated Ringer's (Lactated Ringer's) 1,000 mls @ 75 mls/hr IV .[id number] [facility] Insulin Human Regular (Novolin R) 0 unit SC ACHS [facility] PRN Reason: Protocol Last Admin: 06/26/17 08:50 Dose: 2 unit Lisinopril (Zestril) 5 mg PO DAILY [facility] Last Admin: 06/25/17 17:31 Dose: 5 mg Ondansetron HCl (Zofran Inj) 4 mg IVP Q6H PRN PRN Reason: Nausea/Vomiting Last Admin: 06/25/17 21:18 Dose: 4 mg Pantoprazole Sodium (Protonix Inj) 40 mg IVP DAILY [place] Last Admin: 06/25/17 09:12 Dose: 40 mg Pneumococcal Polyvalent Vaccine (Pneumovax 23 Vaccine) 0.5 ml IM .ONCE ONE Stop: 06/27/17 08:52 - Labs Labs: 06/26/17 07:30 06/26/17 07:30 PT 11.0 SECONDS (9.7-12.2) 06/24/17 18:36 INR 1.0 06/24/17 18:36 APTT 29 SECONDS (21-34) 06/24/17 18:36 - Constitutional Appears: Non-toxic, No Acute Distress - Head Exam Head Exam: ATRAUMATIC, NORMAL INSPECTION, NORMOCEPHALIC - Eye Exam Eye Exam: EOMI - ENT Exam ENT Exam: Mucous Membranes Moist - Neck Exam Neck Exam: Full ROM, Normal Inspection - Respiratory Exam Respiratory Exam: NORMAL BREATHING PATTERN. absent: Respiratory Distress - Cardiovascular Exam Cardiovascular Exam: +S1, +S2 - GI/Abdominal Exam GI & Abdominal Exam: Soft, Normal Bowel Sounds. absent: Tenderness - Extremities Exam Extremities Exam: Full ROM, Normal Inspection - Back Exam Back Exam: NORMAL INSPECTION - Neurological Exam Neurological Exam: Alert, Awake, CN II-XII Intact, Oriented x3 - Psychiatric Exam Psychiatric exam: Normal Affect, Normal Mood - Skin Skin Exam: Dry, Intact, Normal Color, Warm Assessment and Plan - Assessment and Plan (Free Text) Assessment: This is a 37 yo male with 1. Acute pancreatitis -GI consult. recs appreciated. Dr. Bryant. -Lactated ringer's -abdominal us to rule out gallstones>>>>>> shows echogenic liver, consistent with hepatomegaly/fatty liver. -lipase highly elevated -urine drug screen negative -lipid panel pending -HGB a1C 11.5 2. DM -hypoglycemia protocol -ISS -adding lisinopril daily -diabetic education referral 2. HTN -will start norvasc 5 daily -adding lisinopril daily -continue to monitor 3. Pulmonary nodule -pulmonary nodule noted on ct scan of abdomen -will need follow up outpatient 4. Hepatomegaly/fatty liver -continue to monitor 5. GI/DVT ppx -protonix -lovenox [address] Blanton <Morgan Blanton - Last Filed: 06/26/17 18:31> Objective - Vital Signs/Intake and Output Vital Signs (last 24 hours): Temp Pulse Resp BP Pulse Ox 98.3 F 95 H 22 155/107 H 98 06/26/17 16:00 06/26/17 16:00 06/26/17 16:00 06/26/17 17:40 06/26/17 16:00 Intake and Output: 06/26/17 06/26/17 06:59 18:59 Intake Total 1200 825 Balance 1200 825 - Medications Medications: Current Medications Acetaminophen (Tylenol 325mg Tab) 650 mg PO Q6 PRN PRN Reason: Headache Last Admin: 06/26/17 17:35 Dose: 650 mg Amlodipine Besylate (Norvasc) 5 mg PO DAILY [facility] Clonidine HCl (Catapres) 0.1 mg PO TID [facility] Last Admin: 06/26/17 11:07 Dose: Not Given Dextrose (Dextrose 50% Inj) 0 ml IV STAT PRN; Protocol PRN Reason: Hypoglycemia Protocol Dextrose (Glutose 15) 0 gm PO ONCE PRN; Protocol PRN Reason: Hypoglycemia Protocol Enoxaparin Sodium (Lovenox) 40 mg SC DAILY [facility] Last Admin: 06/26/17 11:00 Dose: 40 mg Glucagon (Glucagen Diagnostic Kit) 0 mg IM STAT PRN; Protocol PRN Reason: Hypoglycemia Protocol Dextrose (Dextrose 5% In Water 1000 Ml) 1,000 mls @ 0 mls/hr IV .Q0M PRN; Protocol; Per Protocol PRN Reason: Hypoglycemia Protocol Lactated Ringer's (Lactated Ringer's) 1,000 mls @ 75 mls/hr IV .[id number] [facility] Last Admin: 06/26/17 11:16 Dose: Not Given Insulin Human Regular (Novolin R) 0 unit SC ACHS [facility] PRN Reason: Protocol Last Admin: 06/26/17 17:38 Dose: 3 unit Lisinopril (Zestril) 5 mg PO DAILY [facility] Last Admin: 06/26/17 11:00 Dose: 5 mg Ondansetron HCl (Zofran Inj) 4 mg IVP Q6H PRN PRN Reason: Nausea/Vomiting Last Admin: 06/25/17 21:18 Dose: 4 mg Pantoprazole Sodium (Protonix Inj) 40 mg IVP DAILY [place] Last Admin: 06/26/17 11:00 Dose: 40 mg Pneumococcal Polyvalent Vaccine (Pneumovax 23 Vaccine) 0.5 ml IM .ONCE ONE Stop: 06/27/17 08:52 - Labs Labs: 06/26/17 07:30 06/26/17 07:30 PT 11.0 SECONDS (9.7-12.2) 06/24/17 18:36 INR 1.0 06/24/17 18:36 APTT 29 SECONDS (21-34) 06/24/17 18:36 Assessment and Plan (1) Acute pancreatitis Status: Acute (2) Epigastric abdominal pain Status: Acute (3) Hypertension Status: Acute Attending/Attestation - Attestation I have personally seen and examined this patient.: Yes I have fully participated in the care of the patient.: Yes I have reviewed all pertinent clinical information, including history, physical exam and plan: Yes
--- NOTE | 2017-06-26 10:38 | CP.PCM.PN ---
<Mitesh Blanton - Last Filed: 06/26/17 10:39> Subjective - Date & Time of Evaluation Date of Evaluation: 06/26/17 Time of Evaluation: 08:00 - Subjective Subjective: PGY4 GI Follow-up Pt seen and examined bedside No complaints abd pain improved tolerated liquids ROS: 10-point ROS conducted, neg other than above Objective - Vital Signs/Intake and Output Vital Signs (last 24 hours): Temp Pulse Resp BP Pulse Ox 98.7 F 82 18 115/74 100 06/26/17 07:40 06/26/17 09:42 06/26/17 07:40 06/26/17 09:42 06/26/17 07:40 Intake and Output: 06/26/17 06/26/17 06:59 18:59 Intake Total 1200 Balance 1200 - Medications Medications: Current Medications Acetaminophen (Tylenol 325mg Tab) 650 mg PO Q6 PRN PRN Reason: Headache Last Admin: 06/26/17 06:19 Dose: 650 mg Amlodipine Besylate (Norvasc) 5 mg PO DAILY [facility] Last Admin: 06/25/17 11:05 Dose: 5 mg Clonidine HCl (Catapres) 0.1 mg PO TID [facility] Dextrose (Dextrose 50% Inj) 0 ml IV STAT PRN; Protocol PRN Reason: Hypoglycemia Protocol Dextrose (Glutose 15) 0 gm PO ONCE PRN; Protocol PRN Reason: Hypoglycemia Protocol Enoxaparin Sodium (Lovenox) 40 mg SC DAILY [facility] Last Admin: 06/25/17 09:11 Dose: 40 mg Glucagon (Glucagen Diagnostic Kit) 0 mg IM STAT PRN; Protocol PRN Reason: Hypoglycemia Protocol Dextrose (Dextrose 5% In Water 1000 Ml) 1,000 mls @ 0 mls/hr IV .Q0M PRN; Protocol; Per Protocol PRN Reason: Hypoglycemia Protocol Lactated Ringer's (Lactated Ringer's) 1,000 mls @ 75 mls/hr IV .[id number] [facility] Insulin Human Regular (Novolin R) 0 unit SC ACHS [facility] PRN Reason: Protocol Last Admin: 06/26/17 08:50 Dose: 2 unit Lisinopril (Zestril) 5 mg PO DAILY [facility] Last Admin: 06/25/17 17:31 Dose: 5 mg Ondansetron HCl (Zofran Inj) 4 mg IVP Q6H PRN PRN Reason: Nausea/Vomiting Last Admin: 06/25/17 21:18 Dose: 4 mg Pantoprazole Sodium (Protonix Inj) 40 mg IVP DAILY [place] Last Admin: 06/25/17 09:12 Dose: 40 mg Pneumococcal Polyvalent Vaccine (Pneumovax 23 Vaccine) 0.5 ml IM .ONCE ONE Stop: 06/27/17 08:52 - Labs Labs: 06/26/17 07:30 06/26/17 07:30 PT 11.0 SECONDS (9.7-12.2) 06/24/17 18:36 INR 1.0 06/24/17 18:36 APTT 29 SECONDS (21-34) 06/24/17 18:36 - Constitutional Appears: Well, No Acute Distress - Head Exam Head Exam: ATRAUMATIC, NORMOCEPHALIC - Eye Exam Eye Exam: Normal appearance - ENT Exam ENT Exam: Mucous Membranes Moist - Neck Exam Neck Exam: Normal Inspection - Respiratory Exam Respiratory Exam: Clear to Ausculation Bilateral, NORMAL BREATHING PATTERN. absent: Rales, Rhonchi, Wheezes, Respiratory Distress - Cardiovascular Exam Cardiovascular Exam: REGULAR RHYTHM, +S1, +S2 - GI/Abdominal Exam GI & Abdominal Exam: Soft, Normal Bowel Sounds. absent: Guarding, Rigid, Tenderness, Organomegaly - Extremities Exam Extremities Exam: absent: Joint Swelling, Pedal Edema - Neurological Exam Neurological Exam: Alert, Awake, Oriented x3 - Psychiatric Exam Psychiatric exam: Normal Affect, Normal Mood - Skin Skin Exam: Dry, Intact, Normal Color, Warm Assessment and Plan - Assessment and Plan (Free Text) Assessment: 37yo male with no significant past medical history presents c/o epigastric abdominal pain secondary to acute pancreatitis 1. Acute pancreatitis etiology likely 2/2 ETOH Plan: -advance to low fat diet -avoid alcohol use -if tolerating diet, okay to d/c from GI standpoint -f/u with PCP for DM management -abd u/s reviewed no GB stones -continue low fat diet at home for the next 2-3 weeks -f/u with GI as an oupt d/w Dr. Munson <Stephen Munson Y - Last Filed: 06/26/17 12:55> Objective - Vital Signs/Intake and Output Vital Signs (last 24 hours): Temp Pulse Resp BP Pulse Ox 98.7 F 68 18 145/91 H 100 06/26/17 07:40 06/26/17 11:14 06/26/17 07:40 06/26/17 11:14 06/26/17 07:40 Intake and Output: 06/26/17 06/26/17 06:59 18:59 Intake Total 1200 Balance 1200 - Medications Medications: Current Medications Acetaminophen (Tylenol 325mg Tab) 650 mg PO Q6 PRN PRN Reason: Headache Last Admin: 06/26/17 06:19 Dose: 650 mg Amlodipine Besylate (Norvasc) 5 mg PO DAILY [facility] Clonidine HCl (Catapres) 0.1 mg PO TID [facility] Last Admin: 06/26/17 11:07 Dose: Not Given Dextrose (Dextrose 50% Inj) 0 ml IV STAT PRN; Protocol PRN Reason: Hypoglycemia Protocol Dextrose (Glutose 15) 0 gm PO ONCE PRN; Protocol PRN Reason: Hypoglycemia Protocol Enoxaparin Sodium (Lovenox) 40 mg SC DAILY [facility] Last Admin: 06/26/17 11:00 Dose: 40 mg Glucagon (Glucagen Diagnostic Kit) 0 mg IM STAT PRN; Protocol PRN Reason: Hypoglycemia Protocol Dextrose (Dextrose 5% In Water 1000 Ml) 1,000 mls @ 0 mls/hr IV .Q0M PRN; Protocol; Per Protocol PRN Reason: Hypoglycemia Protocol Lactated Ringer's (Lactated Ringer's) 1,000 mls @ 75 mls/hr IV .[id number] [facility] Last Admin: 06/26/17 11:16 Dose: Not Given Insulin Human Regular (Novolin R) 0 unit SC ACHS [facility] PRN Reason: Protocol Last Admin: 06/26/17 08:50 Dose: 2 unit Lisinopril (Zestril) 5 mg PO DAILY [facility] Last Admin: 06/26/17 11:00 Dose: 5 mg Ondansetron HCl (Zofran Inj) 4 mg IVP Q6H PRN PRN Reason: Nausea/Vomiting Last Admin: 06/25/17 21:18 Dose: 4 mg Pantoprazole Sodium (Protonix Inj) 40 mg IVP DAILY [facility] Last Admin: 06/26/17 11:00 Dose: 40 mg Pneumococcal Polyvalent Vaccine (Pneumovax 23 Vaccine) 0.5 ml IM .ONCE ONE Stop: 06/27/17 08:52 - Labs Labs: 06/26/17 07:30 06/26/17 07:30 PT 11.0 SECONDS (9.7-12.2) 06/24/17 18:36 INR 1.0 06/24/17 18:36 APTT 29 SECONDS (21-34) 06/24/17 18:36 Attending/Attestation - Attestation I have personally seen and examined this patient.: Yes I have fully participated in the care of the patient.: Yes I have reviewed all pertinent clinical information, including history, physical exam and plan: Yes Notes (Text): 06/26/17 12:52 I have seen and examined patient with GI fellow. No acute events overnight, he is seen resting in bed comfortably. His abdominal pain has resolved and he denies nausea, vomiting, diarrhea, fever/chills. Tolerating PO liquids without difficulty. Review of vitals from today are normal. Abdominal pain - resolved New onset diabetes Acute pancreatitis - likely secondary to ETOH use - Advance diet to low fat as tolerated - Diabetic management as per medical team - ETOH cessation counseling - From GI perspective, ok to discharge home with subsequent outpatient follow up. No further planned GI interventions, will sign off case. Please reconsult as necessary, thank you.
[2017-06-26] MEDS: Enoxaparin 40 mg Syringe SC SCH (11:00)
[2017-06-26] MEDS: Lactated Ringer's 1,000 ML IV SCH ×2 (11:16→23:30)
--- NOTE | 2017-06-26 18:32 | CP.PCM.PN ---
Subjective - Date & Time of Evaluation Date of Evaluation: 06/26/17 Objective - Vital Signs/Intake and Output Vital Signs (last 24 hours): Temp Pulse Resp BP Pulse Ox 98.3 F 95 H 22 155/107 H 98 06/26/17 16:00 06/26/17 16:00 06/26/17 16:00 06/26/17 17:40 06/26/17 16:00 Intake and Output: 06/26/17 06/26/17 06:59 18:59 Intake Total 1200 825 Balance 1200 825 - Medications Medications: Current Medications Acetaminophen (Tylenol 325mg Tab) 650 mg PO Q6 PRN PRN Reason: Headache Last Admin: 06/26/17 17:35 Dose: 650 mg Amlodipine Besylate (Norvasc) 5 mg PO DAILY [facility] Clonidine HCl (Catapres) 0.1 mg PO TID [facility] Last Admin: 06/26/17 11:07 Dose: Not Given Dextrose (Dextrose 50% Inj) 0 ml IV STAT PRN; Protocol PRN Reason: Hypoglycemia Protocol Dextrose (Glutose 15) 0 gm PO ONCE PRN; Protocol PRN Reason: Hypoglycemia Protocol Enoxaparin Sodium (Lovenox) 40 mg SC DAILY [facility] Last Admin: 06/26/17 11:00 Dose: 40 mg Glucagon (Glucagen Diagnostic Kit) 0 mg IM STAT PRN; Protocol PRN Reason: Hypoglycemia Protocol Dextrose (Dextrose 5% In Water 1000 Ml) 1,000 mls @ 0 mls/hr IV .Q0M PRN; Protocol; Per Protocol PRN Reason: Hypoglycemia Protocol Lactated Ringer's (Lactated Ringer's) 1,000 mls @ 75 mls/hr IV .[id number] [facility] Last Admin: 06/26/17 11:16 Dose: Not Given Insulin Human Regular (Novolin R) 0 unit SC ACHS [facility] PRN Reason: Protocol Last Admin: 06/26/17 17:38 Dose: 3 unit Lisinopril (Zestril) 5 mg PO DAILY [facility] Last Admin: 06/26/17 11:00 Dose: 5 mg Ondansetron HCl (Zofran Inj) 4 mg IVP Q6H PRN PRN Reason: Nausea/Vomiting Last Admin: 06/25/17 21:18 Dose: 4 mg Pantoprazole Sodium (Protonix Inj) 40 mg IVP DAILY [facility] Last Admin: 06/26/17 11:00 Dose: 40 mg Pneumococcal Polyvalent Vaccine (Pneumovax 23 Vaccine) 0.5 ml IM .ONCE ONE Stop: 06/27/17 08:52 - Labs Labs: 06/26/17 07:30 06/26/17 07:30 PT 11.0 SECONDS (9.7-12.2) 06/24/17 18:36 INR 1.0 06/24/17 18:36 APTT 29 SECONDS (21-34) 06/24/17 18:36 Assessment and Plan (1) Acute pancreatitis Status: Acute (2) Epigastric abdominal pain Status: Acute (3) Hypertension Status: Acute - Assessment and Plan (Free Text) Plan: . Acute pancreatitis -GI consult. recs appreciated. Dr. Bryant. -Lactated ringer's -abdominal us to rule out gallstones>>>>>> shows echogenic liver, consistent with hepatomegaly/fatty liver. -lipase highly elevated -urine drug screen negative -lipid panel pending -HGB a1C 11.5 2. DM -hypoglycemia protocol -ISS -adding lisinopril daily -diabetic education referral 2. HTN -will start norvasc 5 daily -adding lisinopril daily -continue to monitor 3. Pulmonary nodule -pulmonary nodule noted on ct scan of abdomen -will need follow up outpatient 4. Hepatomegaly/fatty liver -continue to monitor 5. GI/DVT ppx -protonix -lovenox 40 Casein and discussed with the staff and the resident patient has a diabetes needs to medications patient been told to stop alcohol Discharge planning Possible discharge tomorrow morning
[2017-06-27 08:42] VITALS: O2SAT 100
[2017-06-27 08:43] LABS: ALB/GLOB RATIO 1.2 (1.0-2.1); ALT/SGPT 52 U/L (21-72); AST/SGOT 45 U/L (17-59); BLOOD UREA NITROGEN 9 mg/dL (9-20); CALCIUM 9.3 mg/dl (8.6-10.4); GFR AFRICAN-AMERICAN > 60; GFR NON-AFRICAN AMERICAN > 60
[2017-06-27] MEDS ORDERED: Pneumococcal 23-Valent Vaccine IM ONE ×3 (08:51→13:21)
[2017-06-27] MEDS: (Novolin R) Insulin Human Regular 100 units/ml vial SC SCH ×2 (08:52→12:47)
[2017-06-27 08:59] LABS: BASO % 0.5 % (0.0-2.0); EOS # 0.2 K/uL (0.0-0.7); EOS % 2.2 % (0.0-4.0); HEMOGLOBIN 15.1 g/dL (12.0-18.0); LYMPH # 1.2 K/uL (1.0-4.3); MEAN CELL VOLUME 86.2 fL (80.0-94.0); MEAN CORPUSCULAR HEMOGLOBIN 30.6 pg (27.0-31.0); MEAN CORPUSCULAR HGB CONC 35.4 g/dL (33.0-37.0); MEAN PLATELET VOLUME 8.2 fL (7.2-11.7); MONO # 0.8 K/uL (0.0-0.8); MONO % 10.6 % (0.0-10.0); NEUT # 5.4 K/uL (1.8-7.0); NEUT % 70.7 % (50.0-75.0); NRBC % 0.2 % (0.0-2.0); RBC 4.95 Mil/uL (4.40-5.90); RED CELL DISTRIBUTION WIDTH 12.3 % (11.5-14.5); WHITE BLOOD COUNT 7.6 K/uL (4.8-10.8)
[2017-06-27] MEDS: Enoxaparin 40 mg Syringe SC SCH (10:55)
--- NOTE | 2017-06-27 14:25 | CP.PCM.PN ---
<Harsh Brunner - Last Filed: 06/27/17 14:29> Subjective - Date & Time of Evaluation Date of Evaluation: 06/27/17 Time of Evaluation: 14:41 - Subjective Subjective: PGY2 Medicine Note for Dr. Mckenna Blanton; all management as per Dr. Mckenna Blanton Patient is stable to go home and wishes to go home; denies any symptoms today. Objective - Vital Signs/Intake and Output Vital Signs (last 24 hours): Temp Pulse Resp BP Pulse Ox 98.2 F 76 18 143/93 H 100 06/27/17 07:45 06/27/17 07:45 06/27/17 07:45 06/27/17 07:45 06/27/17 07:45 - Medications Medications: Current Medications Acetaminophen (Tylenol 325mg Tab) 650 mg PO Q6 PRN PRN Reason: Headache Last Admin: 06/26/17 22:13 Dose: 650 mg Amlodipine Besylate (Norvasc) 5 mg PO DAILY [facility] Last Admin: 06/27/17 10:56 Dose: 5 mg Clonidine HCl (Catapres) 0.1 mg PO TID [facility] Last Admin: 06/26/17 11:07 Dose: Not Given Dextrose (Dextrose 50% Inj) 0 ml IV STAT PRN; Protocol PRN Reason: Hypoglycemia Protocol Dextrose (Glutose 15) 0 gm PO ONCE PRN; Protocol PRN Reason: Hypoglycemia Protocol Enoxaparin Sodium (Lovenox) 40 mg SC DAILY [facility] Last Admin: 06/27/17 10:55 Dose: 40 mg Glimepiride (Amaryl) 2 mg PO DAILY [facility] Last Admin: 06/27/17 10:56 Dose: 2 mg Glucagon (Glucagen Diagnostic Kit) 0 mg IM STAT PRN; Protocol PRN Reason: Hypoglycemia Protocol Dextrose (Dextrose 5% In Water 1000 Ml) 1,000 mls @ 0 mls/hr IV .Q0M PRN; Protocol; Per Protocol PRN Reason: Hypoglycemia Protocol Lactated Ringer's (Lactated Ringer's) 1,000 mls @ 75 mls/hr IV .[id number] [facility] Last Admin: 06/26/17 23:30 Dose: 75 mls/hr Insulin Human Regular (Novolin R) 0 unit SC ACHS [facility] PRN Reason: Protocol Last Admin: 06/27/17 12:47 Dose: 4 unit Ketorolac Tromethamine (Toradol) 30 mg IVP Q6 PRN PRN Reason: Pain, moderate (4-7) Last Admin: 06/27/17 10:55 Dose: 30 mg Lisinopril (Zestril) 5 mg PO DAILY [facility] Last Admin: 06/27/17 10:56 Dose: 5 mg Ondansetron HCl (Zofran Inj) 4 mg IVP Q6H PRN PRN Reason: Nausea/Vomiting Last Admin: 06/26/17 20:05 Dose: 4 mg Pantoprazole Sodium (Protonix Inj) 40 mg IVP DAILY [facility] Last Admin: 06/27/17 10:55 Dose: 40 mg - Labs Labs: 06/27/17 08:19 06/27/17 08:19 PT 11.0 SECONDS (9.7-12.2) 06/24/17 18:36 INR 1.0 06/24/17 18:36 APTT 29 SECONDS (21-34) 06/24/17 18:36 - Constitutional Appears: Well, Non-toxic - Head Exam Head Exam: ATRAUMATIC - Eye Exam Eye Exam: EOMI Pupil Exam: PERRL - ENT Exam ENT Exam: Mucous Membranes Moist - Neck Exam Neck Exam: Full ROM - Respiratory Exam Respiratory Exam: Clear to Ausculation Bilateral, NORMAL BREATHING PATTERN. absent: Rales, Rhonchi, Wheezes - Cardiovascular Exam Cardiovascular Exam: REGULAR RHYTHM - GI/Abdominal Exam GI & Abdominal Exam: Soft, Normal Bowel Sounds - Extremities Exam Extremities Exam: Full ROM. absent: Calf Tenderness - Back Exam Back Exam: NORMAL INSPECTION. absent: CVA tenderness (L), CVA tenderness (R) - Neurological Exam Neurological Exam: Alert, Awake, Normal Gait, Oriented x3 - Psychiatric Exam Psychiatric exam: Normal Affect, Normal Mood - Skin Skin Exam: Warm Assessment and Plan - Assessment and Plan (Free Text) Assessment: This is a 37 yo male with 1. Acute pancreatitis -GI consult. recs appreciated. Dr. Bryant. -Lactated ringer's -abdominal us to rule out gallstones>>>>>> shows echogenic liver, consistent with hepatomegaly/fatty liver. -lipase highly elevated -urine drug screen negative -lipid panel pending -HGB a1C 11.5 2. DM -hypoglycemia protocol -ISS -adding lisinopril daily -diabetic education referral 2. HTN -will start norvasc 5 daily -adding lisinopril daily -continue to monitor 3. Pulmonary nodule -pulmonary nodule noted on ct scan of abdomen -will need follow up outpatient 4. Hepatomegaly/fatty liver -continue to monitor 5. GI/DVT ppx -protonix -lovenox 40 The patient is stable for d/c as per Dr. Mckenna Blanton The patient has been diagnosed with the following Diabetes He will be d/c on Lantus, 15 units at bedtime Metformin, 1000mg BID Amyrl 2mg PO daily Aspirin 81mg Lisinopril 5mg PO at night he will need to have his hemoglobin A1C checked in 3 months time, and take daily blood sugars (morning and night) prescription for glucometer, and test strips given Newly diagnosed hyperlipidemia The patient will need to modify his diet and exercise will add crestor 10mg HS at night Newly diagnosed HTN will start norvasc Pulmonary Nodule The patient should follow up with a intelligence specialist as an outpatient <Morgan Blanton S - Last Filed: 06/27/17 23:27> Objective - Vital Signs/Intake and Output Vital Signs (last 24 hours): Temp Pulse Resp BP Pulse Ox 98.0 F 77 20 125/79 100 06/27/17 15:00 06/27/17 15:00 06/27/17 15:00 06/27/17 15:00 06/27/17 15:00 Intake and Output: 06/27/17 06/28/17 18:59 06:59 Intake Total 1050 Balance 1050 - Labs Labs: 06/27/17 08:19 06/27/17 08:19 PT 11.0 SECONDS (9.7-12.2) 06/24/17 18:36 INR 1.0 06/24/17 18:36 APTT 29 SECONDS (21-34) 06/24/17 18:36 Assessment and Plan (1) Acute pancreatitis Status: Acute (2) Epigastric abdominal pain Status: Acute (3) Hypertension Status: Acute
[2017-06-27] MEDS ORDERED: Influenza Vaccine 60 mcg/0.5 mL SYR (4YR UP) IM ONE (14:36)
[2017-06-27 16:01] VITALS: BP 125/79; PULSE 77; RESP 20; TEMP 98
--- NOTE | 2017-06-27 23:27 | CP.PCM.PN ---
Subjective - Date & Time of Evaluation Date of Evaluation: 06/27/17 Objective - Vital Signs/Intake and Output Vital Signs (last 24 hours): Temp Pulse Resp BP Pulse Ox 98.0 F 77 20 125/79 100 06/27/17 15:00 06/27/17 15:00 06/27/17 15:00 06/27/17 15:00 06/27/17 15:00 Intake and Output: 06/27/17 06/28/17 18:59 06:59 Intake Total 1050 Balance 1050 - Labs Labs: 06/27/17 08:19 06/27/17 08:19 PT 11.0 SECONDS (9.7-12.2) 06/24/17 18:36 INR 1.0 06/24/17 18:36 APTT 29 SECONDS (21-34) 06/24/17 18:36 Assessment and Plan (1) Acute pancreatitis Status: Acute (2) Epigastric abdominal pain Status: Acute (3) Hypertension Status: Acute - Assessment and Plan (Free Text) Plan: Is seen and discussed with the staff and the resident continue same 1. Acute pancreatitis -GI consult. recs appreciated. Dr. Bryant. -Lactated ringer's -abdominal us to rule out gallstones>>>>>> shows echogenic liver, consistent with hepatomegaly/fatty liver. -lipase highly elevated -urine drug screen negative -lipid panel pending -HGB a1C 11.5 2. DM -hypoglycemia protocol -ISS -adding lisinopril daily -diabetic education referral 2. HTN -will start norvasc 5 daily -adding lisinopril daily -continue to monitor 3. Pulmonary nodule -pulmonary nodule noted on ct scan of abdomen -will need follow up outpatient 4. Hepatomegaly/fatty liver -continue to monitor 5. GI/DVT ppx -protonix -lovenox 40 The patient is stable for d/c as per Dr. Mckenna Blanton The patient has been diagnosed with the following Diabetes He will be d/c on Lantus, 15 units at bedtime Metformin, 1000mg BID Amyrl 2mg PO daily Aspirin 81mg Lisinopril 5mg PO at night he will need to have his hemoglobin A1C checked in 3 months time, and take daily blood sugars (morning and night) prescription for glucometer, and test strips given Newly diagnosed hyperlipidemia The patient will need to modify his diet and exercise will add crestor 10mg HS at night Newly diagnosed HTN will start norvasc Pulmonary Nodule The patient should follow up with a emergency room physician as an outpatient
== END 2017-06-27 16:57 | disposition home or self-care (01) | DRG 440 ==
LOC: C.ER 15:52 → C.9E 22:17 → C.5S 06-25 05:45
PROVIDERS: ADMIT Internal Medicine Nephrology; ATTEND Internal Medicine Nephrology
DX: K85.90 Acute pancreatitis without necrosis or infection, unspecified (principal); E11.9 Type 2 diabetes mellitus without complications; E78.5 Hyperlipidemia, unspecified; I10 Essential (primary) hypertension; Z79.4 Long term (current) use of insulin; R91.1 Solitary pulmonary nodule